=== PATIENT | male | born 1990 | race Caucasian/White ===

== ENCOUNTER 2020-06-30 16:20 | Emergency (ER) | payer MEDICAID ==
[~2020-06-30] VITALS: Ht 182.9 cm; Wt 86.1 kg
[2020-06-30 16:23] VITALS: BP 123/83
--- NOTE | 2020-06-30 16:35 | NUR ---
PT CALMLY SITTING ON PRIYANKA ROWELL. STATES DENTAL PAIN IS 7/10. CALL LIGHT WITHIN REACH.
--- NOTE | 2020-06-30 16:35 | NUR ---
PA AT BS
[2020-06-30] MEDS ORDERED: KETOROLAC 30 MG/1 ML ONE (16:38)
[2020-06-30] MEDS ORDERED: KETOROLAC 30 MG/1 ML IM ONE (17:00)
== END 2020-06-30 16:52 | disposition home or self-care (01) ==
LOC: ED 16:45
DX: K08.89 Other specified disorders of teeth and supporting structures (principal)
CPT/HCPCS: 96372; 99283; J1885